=== PATIENT | male | born 1950 | race Caucasian/White ===

== ENCOUNTER 2016-04-15 09:49 | Observation (INO) ==
[2016-04-15 10:55] LABS: Basophils % 0.2 %; Eosinophils # 0.1 K/mcL (0.0-0.6); Eosinophils % 0.9 %; Hemoglobin 16.4 g/dL (12.9-16.9); Immature Granulocytes % 0.1 % (0-4); Lymphocytes # 4.5 K/mcL (0.6-4.6); Lymphocytes % 55.2 %; Mean Corpuscular HGB Conc 34.2 g/dL (31.6-35.5); Mean Corpuscular Hemoglobin 31.3 pg (28.0-33.3); Mean Corpuscular Volume 91.6 fL (83.0-100.0); Mean Platelet Volume 10.2 fL (9.4-12.4); Monocytes # 0.6 K/mcL (0.0-1.3); Monocytes % 7.2 %; Neutrophils # 2.9 K/mcL (1.6-8.9); Platelet Count 199 K/mcL (140-400); Red Blood Count 5.24 M/mcL (4.19-5.50); Red Cell Distribution Width 12.1 % (11.5-14.5); Segmented Neutrophils % 36.4 %
--- NOTE | 2016-04-15 10:59 | Emergency Department Note ---
Disposition Clinical Impression: Transient cerebral ischemia Qualifiers: Transient cerebral ischemia type: unspecified Qualified Code(s): G45.9 - Transient cerebral ischemic attack, unspecified Disposition: Admitted As Inpatient Condition: Fair Time of Disposition: 11:46 Dizziness HPI - General Chief Complaint: ED Dizziness Stated Complaint: Dizzy Time Seen by Provider: 04/15/16 10:02 Source: patient, family Limitations: no limitations Nursing Notes Reviewed: Yes Vital Signs Reviewed: Yes - History of Present Illness HPI Narrative: Patient is a 65-year-old male who presents to [facility] ED with a chief complaint of dizziness. States he has had 3 dizzy spells. First one was yesterday evening around 7 PM. Each spell lasts for approximately 5 minutes. First spell involved him getting double vision as well as feeling a funny feeling in his face that he describes as some numbness. Second spell involved him feeling very lightheaded and almost passing out. The third spell also had some double vision and numbness and his states he was unresponsive to her for a few minutes. Denies any prior history of episodes like this. Patient's states she was concerned for stroke so she brought him in. Patient denies any weakness to any of his extremities. Denies any nausea, vomiting, fever or chills. Past medical history significant for atrial fibrillation on several toe, prior MA, hyperlipidemia, type 2 diabetes, hypertension, bladder cancer (considered cured). Pt Subjective Complaint: lightheadedness, near syncope Onset (ago): hour(s) Timing: sudden onset, intermittent Description: lightheadedness, near-syncope History of similar episodes: No History of trauma: No Severity: moderate Improves with: nothing Worsens with: nothing Associated symptoms: Reports: confusion, vision changes. Denies: chest pain, fever, chills, shortness of breath, weakness, nausea, vomiting - Related Data Home Medications Medication Instructions Recorded Confirmed Lisinopril [Zestril] 10 mg PO DAILY 11/17/14 11/18/14 Rivaroxaban [Xarelto] 20 mg PO DAILY 09/22/15 09/22/15 Allergies Allergy/AdvReac Type Severity Reaction Status Date / Time No Known Allergies Allergy Verified 11/18/14 08:32 All systems ED: reviewed and negative except as stated. Past Medical History - Past Medical History Attestation: Yes The following information was validated with the patient. Source: patient Medical history: Reports: atrial fibrillation, cancer, diabetes, hypertension, myocardial infarction Psychiatric history: Reports: no psych history - Social History Smoking Status: Never smoker Smokeless Tobacco Status: No Alcohol use: Reports: none Drug use: Reports: none Physical Exam - General Limitations: no limitations General appearance: alert, in no apparent distress - Head Head exam: atraumatic, normocephalic, normal inspection - Eye Eye exam: Present: normal appearance, PERRL, EOMI - ENT ENT exam: normal exam, normal oropharynx, mucous membranes moist - Neck Neck exam: Present: normal inspection, full ROM, trachea midline - Chest Chest inspection: Present: normal inspection, symmetric chest wall rise - Respiratory Respiratory exam: Present: normal lung sounds bilaterally - Cardiovascular Cardiovascular exam: Present: regular rate, normal rhythm, normal heart sounds - Abdominal Exam Abdominal exam: Present: soft, Non-Tender. Absent: tenderness, distention, guarding, rebound, rigidity - Extremities Exam Extremities exam: Present: normal inspection, full ROM. Absent: tenderness, pedal edema - Back Exam Back exam: Present: normal inspection, full ROM. Absent: tenderness - Neurological Exam Neurological exam: Present: alert, oriented X3, CN II-XII intact. Absent: motor sensory deficit - Psychiatric Psychiatric exam: Present: normal affect, normal mood - Skin Skin exam: Present: warm, dry, intact, normal color Course Course Narrative: Patient seen and examined. Dizzy spells that last just a few minutes before going away on their own. Concern for cardiac versus intracranial pathology. We will do a cardiopulmonary workup along with CT head. - Reevaluation(s) Reevaluation #1: Labs unremarkable. CT of the head shows an age indeterminate right frontal lobe infarct. Suspect patient has had other TIAs as well. Will admit for TIA/stroke workup. I spoke with hospitalist Dr. Katz who has accepted patient for admission. Time: 11:46 Vital Signs Temperature 98.2 F 04/15/16 09:57 Pulse Rate 64 04/15/16 09:57 Respiratory Rate 16 04/15/16 09:57 Blood Pressure 169/94 04/15/16 09:57 O2 Sat by Pulse Oximetry 97 04/15/16 09:57 Temperature 98.2 F 04/15/16 09:57 Pulse Rate 58 04/15/16 11:02 Respiratory Rate 11 04/15/16 11:02 Blood Pressure 150/82 04/15/16 11:02 O2 Sat by Pulse Oximetry 96 04/15/16 11:02 Oxygen Delivery Oxygen Delivery Room Air Dizziness - Medical Records Medical records reviewed: Yes I reviewed the patient's medical records. - Lab Data Lab results reviewed: Yes I reviewed the patient's lab results. Result diagrams: 04/15/16 10:45 04/15/16 10:45 Lab Results 04/15/16 04/15/16 04/15/16 Range/Units 10:45 10:45 10:45 WBC 8.1 (4.3-11.1) K/mcL RBC 5.24 (4.19-5.50) M/mcL Hgb 16.4 (12.9-16.9) g/dL Hct 48.0 (37.5-50.1) % MCV 91.6 (83.0-100.0) fL MCH 31.3 (28.0-33.3) pg MCHC 34.2 (31.6-35.5) g/dL RDW 12.1 (11.5-14.5) % Plt Count 199 (140-400) K/mcL MPV 10.2 (9.4-12.4) fL Immature Gran % 0.1 (0-4) % Seg Neutrophils % 36.4 % Lymphocytes % 55.2 % Monocytes % 7.2 % Eosinophils % 0.9 % Basophils % 0.2 % Neutrophils # 2.9 (1.6-8.9) K/mcL Lymphocytes # 4.5 (0.6-4.6) K/mcL Monocytes # 0.6 (0.0-1.3) K/mcL Eosinophils # 0.1 (0.0-0.6) K/mcL Basophils # 0.0 (0.0-0.2) K/mcL Sodium 138 (136-145) mEq/L Potassium 4.7 H (3.5-4.5) mEq/L Chloride 105 (98-109) mEq/L Carbon Dioxide 26 (19-29) mEq/L BUN 15 (8-26) mg/dL Creatinine 0.91 (0.72-1.25) mg/dL Est GFR ( Amer) > 60 (> 60) Est GFR (Non-Af Amer) > 60 (> 60) BUN/Creatinine Ratio 16 (6-26) Glucose 107 H (70-99) mg/dL Calculated Osmolality 287 (280-300) Calcium 9.9 (8.6-10.8) mg/dL Troponin I 0.00 (0-0.03) ng/mL - Radiology Data Radiology results reviewed: Yes I reviewed the patient's radiology results. - EKG Data EKG attestation: Yes I reviewed and interpreted this EKG. EKG results narrative: EKG done at 1006 shows sinus bradycardia with a rate of [address] elevation or depression. There is a Q wave in lead 3. Normal axis. Attestation Statement - Attestation Attestation: Patient was seen with resident physician. I reviewed the history, physical, assessment and plan, and agree with the findings. I also personally evaluated this patient and had [id number] time with this patient. 65-year-old male who presents to the emergency department with multiple episodes of dizziness. First one was 7 PM last night states it lasted approximately 5 minutes and felt like he was going to pass out and or fall over. Had several more episodes today. The third one and one prompted his visit to the ED, said he was dizzy and he had some numbness under his left eye and his says he was acting confused for the 5 minute stretch of time. Symptoms resolved spontaneously he has not had any chest pain or palpitations. On examination neurologically the patient is intact heart and lungs are normal abdomen is soft and nontender extremities show no acute abnormalities. Patient has a history of A. fib which she says is controlled and he is on blood thinners for this. We will do workup both neurologically and cardiac and likely admitted to the hospital for near syncope and possible TIAs. Patient was clinically stable in the emergency department agree with resident physician assessment and plan.
[2016-04-15 11:07] LABS: BUN/Creatinine Ratio 16 (6-26); Blood Urea Nitrogen 15 mg/dL (8-26); Calcium 9.9 mg/dL (8.6-10.8); Carbon Dioxide 26 mEq/L (19-29); Chloride 105 mEq/L (98-109); Glucose 107 mg/dL (70-99); Osmolality,Calculated 287 (280-300); Potassium 4.7 mEq/L (3.5-4.5); Sodium 138 mEq/L (136-145); eGFR For African Americans > 60 (> 60); eGFR For Non-African Americans > 60 (> 60)
[2016-04-15] MEDS ORDERED: Naloxone 0.4 MG/ML INJ IVP PRN (13:37)
[2016-04-15] MEDS ORDERED: Ondansetron 4 MG/2 ML VIAL IVP PRN (13:37)
--- NOTE | 2016-04-15 13:41 | Internal Med History&Physical ---
Date of Encounter: 04/15/16 Time of Encounter: 13:00 Assessment and Plan (1) Transient cerebral ischemia Current visit: Yes Status: Acute Left-sided facial numbness and tingling, resolved within [address] head done in the emergency room shows low attenuation in the anterior right frontal lobe, suggestive of age-indeterminate infarct. We will get MRI brain to further assess this. Carotid Doppler to rule out stenosis. Patient has no history of previous stroke. Telemetry monitoring and trend troponins. Continue Xarelto. Check lipid profile and hemoglobin A1c. Qualifiers: Transient cerebral ischemia type: unspecified Qualified Code(s): G45.9 - Transient cerebral ischemic attack, unspecified (2) Near syncope Current visit: Yes Status: Acute Check orthostatic vitals. Uncertain etiology. IV hydration. Noted to be only on 1 antihypertensive with no episodes of hypotension at this time. Supportive care. (3) Essential hypertension Current visit: Yes Status: Chronic Resume lisinopril. (4) Diabetes mellitus Current visit: Yes Status: Chronic Diet-controlled diabetes as he had significant weight loss and that controlled his blood sugars very well. Patient was noted to be not on any medications at home. Check hemoglobin A1c. Accu-Chek blood glucose monitoring. Consistent carbohydrate diet. Qualifiers: Diabetes mellitus type: type 2 Diabetes mellitus complication status: without complication Diabetes mellitus intermediate designer insulin use: without intermediate designer use Qualified Code(s): E11.9 - Type 2 diabetes mellitus without complications (5) Atrial fibrillation Current visit: Yes Status: Chronic Continue long-term anticoagulation with Xarelto; Qualifiers: Atrial fibrillation type: chronic Qualified Code(s): I48.2 - Chronic atrial fibrillation (6) Bladder cancer Current visit: No Status: Resolved Qualifiers: Bladder location: unspecified site Qualified Code(s): C67.9 - Malignant neoplasm of bladder, unspecified Internal Medicine - H&P: HPI Chief complaint: Dizziness, left facial numbness Admitted From: Emergency Dept Plans for Post Hospital Care: Home History of present illness: Mr. Galdamez is a 65 year old male with history of hypertension, diabetes and atrial fibrillation, presenting with complaints of dizziness and left facial numbness. Patient reports being in his usual state of health until yesterday when he had an episode of dizziness and near syncope last night as he was resting in his recliner chair. He felt better slowly and was able to go to sleep and he had 2 further episodes this morning, both of them while he was standing and he almost fell due to dizziness and the third episode was associated with left-sided facial numbness and tingling, slight facial droop to the left and confusion. Each of his episodes lasted about 3-5 minutes. No previous similar episodes. No chest pain, palpitations, shortness of breath, focal weakness in extremities, slurred speech. Patient has a history of atrial fibrillation and is noted to be on Xarelto for the same. Past Med Surg Social Fam HX - Past Medical History Medical history: atrial fibrillation, cancer (History of bladder cancer status post resection), coronary artery disease, diabetes, hyperlipidemia, hypertension , myocardial infarction Psychiatric history: no psych history - Past Surgical History Surgical History: other (Transurethral resection of bladder tumor) - Social History Smoking Status: Former smoker Smokeless Tobacco Status: No Alcohol use: none Drug use: none Occupational status: retired Current living situation: Home, With Family Activity Level: Independent ambulation Recent Out of Country Travel Within the Last 8 Weeks: No Exposure or Possible Exposure to Illness During Travel: No - Family History Mother Hx Family Neurologic Disorders: Yes (CVA) Father Hx Family Cancer: Yes (Stomach cancer) Internal Medicine - H&P: Meds Lisinopril [Zestril] 20 mg PO DAILY 11/17/14 [History] Rivaroxaban [Xarelto] 20 mg PO DAILY 09/22/15 [History] Allergies No Known Allergies Allergy (Verified 11/18/14 08:32) All Systems PM: A 10-system review of systems was performed and is negative for pertinent findings except as documented above in the HPI. - Constitutional Constitutional: no chills, no fever(s), no night sweats - EENT Eyes: diplopia, no change in vision, no discharge, no pain, no photophobia Ears: no ear discharge, no ear pain, no tinnitus Nose, mouth and throat: no dysphagia, no nasal discharge, no neck pain, no sore throat - Cardiovascular Cardiovascular ROS IM: lightheadedness, no chest pain, no diaphoresis, no dyspnea, no palpitations, no syncope - Respiratory Respiratory: no cough, no dyspnea, no wheezing, no excessive phlegm production - Gastrointestinal Gastrointestinal: no abdominal pain, no diarrhea, no hematemesis, no hematochezia, no melena, no nausea, no vomiting - Musculoskeletal Musculoskeletal ROS IM: no numbness, no tingling - Integumentary Integumentary IM: no rash, no unusual bruising - Neurological Neurological ROS: behavioral changes, disequilibrium, numbness, paresthesias, vertigo - Hematologic/Lymphatic Hematologic/Lymphatic: no easy bruising - Constitutional Vitals: Temp Pulse Resp BP Pulse Ox 97.7 F 54 17 159/107 97 04/15/16 12:08 04/15/16 12:08 04/15/16 12:08 04/15/16 12:08 04/15/16 12:08 General appearance: Present: A&O X 3, answers questions appropriately - Head Head exam: Present: atraumatic, normocephalic - Neck Neck exam general surgery: Present: supple, trachea midline. Absent: lymphadenopathy - Respiratory Respiratory exam: Present: CTAB. Absent: accessory muscle use, rales, rhonchi, wheezes - Cardiovascular Cardiovascular exam: Present: RRR, +S1, +S2. Absent: diastolic murmur, gallop, rubs, systolic murmur - GI/Abdominal GI/Abdominal exam: Present: normal bowel sounds, soft, no peritoneal signs. Absent: distended, tenderness - Extremities Exam Extremities exam: Present: full ROM, warm, radial pulses palpable and symetrical. Absent: calf tenderness, cyanotic, pedal edema - Neurological Exam Neurological exam: Present: CN II-XII intact, oriented X3, no focal deficits, strengths equal and symetr throughout. Absent: pronater drift, facial droop, speech deficit - Skin Skin exam: Present: dry, intact Internal Med - H&P Results - Labs CBC & Chem 7: 04/15/16 10:45 04/15/16 10:45 - EKG Data -: EKG Interpreted by Myself EKG shows normal: sinus rhythm Rate: bradycardia (58 bpm)
[2016-04-15] MEDS: *HR* Rivaroxaban 10 MG TABLET PO SCH (14:36)
[2016-04-15] MEDS: Acetaminophen 325 MG TABLET PO PRN (19:59)
[2016-04-16 05:30] LABS: Basophils % 0.2 %; Eosinophils # 0.1 K/mcL (0.0-0.6); Eosinophils % 1.1 %; Hematocrit 46.7 % (37.5-50.1); Hemoglobin 15.9 g/dL (12.9-16.9); Immature Granulocytes % 0.1 % (0-4); Lymphocytes # 4.8 K/mcL (0.6-4.6); Lymphocytes % 50.4 %; Mean Corpuscular Hemoglobin 31.3 pg (28.0-33.3); Mean Corpuscular Volume 91.9 fL (83.0-100.0); Mean Platelet Volume 10.3 fL (9.4-12.4); Monocytes # 0.8 K/mcL (0.0-1.3); Monocytes % 8.1 %; Neutrophils # 3.9 K/mcL (1.6-8.9); Platelet Count 190 K/mcL (140-400); Red Blood Count 5.08 M/mcL (4.19-5.50); Red Cell Distribution Width 12.3 % (11.5-14.5); Segmented Neutrophils % 40.1 %
[2016-04-16 05:34] LABS: Hemoglobin A1C 5.3 %
[2016-04-16 05:42] LABS: BUN/Creatinine Ratio 16 (6-26); Blood Urea Nitrogen 15 mg/dL (8-26); Calcium 9.5 mg/dL (8.6-10.8); Carbon Dioxide 23 mEq/L (19-29); Chloride 104 mEq/L (98-109); Chol/HDL Ratio 7.4 (0-4.9); Cholesterol 199 mg/dL (< 200); Glucose 107 mg/dL (70-99); HDL Cholesterol 27 mg/dL (40-59); LDL Cholesterol,Calculated 121 mg/dL (0-99); Osmolality,Calculated 287 (280-300); Potassium 4.2 mEq/L (3.5-4.5); Sodium 138 mEq/L (136-145); Triglycerides 254 mg/dL (< 150); eGFR For African Americans > 60 (> 60); eGFR For Non-African Americans > 60 (> 60)
[2016-04-16] MEDS: Acetaminophen 325 MG TABLET PO PRN (06:46)
[2016-04-16] MEDS: *HR* Rivaroxaban 10 MG TABLET PO SCH (08:05)
--- NOTE | 2016-04-16 11:14 | Carotid Imaging Report ---
Carotid Duplex Patient Name:Damir Galdamez Order Number:[id number] Procedure Date:04/16/2016 Date:1950Age:65 yrs Gender:Male Rt.BP:139 / 83 mmHgHeart Rate: Location:[facility] Room #: 2NE28 Histology Manager:Nora Al Referring MD:Nancy Alexandra MD writer editor:[facility] Candi MD:Humza Fuller MD Primary Indications:Syncope and collapse Risk Factors Yes/No Hypertension Yes Diabetes Yes Hypercholesterolemia Yes Smoker Previous Yes Hx of CAD/PTCA Yes Impressions: Findings: Bilateral carotid system has nonstenotic plaque. Recommendations: Test completed on 04/16/2016 at 9:47:00 am. Findings Carotid Duplex: Right: The right proximal common carotid artery has a PSV of 93 cm/s and a EDV of 22 cm/s. The right mid common carotid artery has a PSV of 79 cm/s and a EDV of 17 cm/s. The right distal common carotid artery has a PSV of 74 cm/s and a EDV of 17 cm/s. There is nonstenotic plaque in the right bifurcation with a PSV of 48 cm/s and a EDV of 16 cm/s. There is irregular homogeneous plaque. The right proximal internal carotid artery has a PSV of 66 cm/s and a EDV of 25 cm/s. The right mid internal carotid artery has a PSV of 86 cm/s and a EDV of 30 cm/s. The right distal internal carotid artery has a PSV of 56 cm/s and a EDV of 21 cm/s. The right eca has a PSV of 102 cm/s and a EDV of 14 cm/s. The right vertebral artery has a PSV of 38 cm/s and a EDV of 13 cm/s. There is antegrade spectral Doppler flow patterns. Left: The left proximal common carotid artery has a PSV of 94 cm/s and a EDV of 19 cm/s. The left mid common carotid artery has a PSV of 85 cm/s and a EDV of 18 cm/s. The left distal common carotid artery has a PSV of 83 cm/s and a EDV of 20 cm/s. The left bifurcation has a PSV of 75 cm/s and a EDV of 19 cm/s. There is nonstenotic plaque in the left proximal internal carotid artery with a PSV of 86 cm/s and a EDV of 25 cm/s. There is smooth homogeneous plaque. The left mid internal carotid artery has a PSV of 61 cm/s and a EDV of 25 cm/s. The left distal internal carotid artery has a PSV of 70 cm/s and a EDV of 26 cm/s. The left eca has a PSV of 131 cm/s and a EDV of 17 cm/s. The left vertebral artery has a PSV of 38 cm/s and a EDV of 10 cm/s. There is antegrade spectral Doppler flow patterns. Prior Study: No prior study available for comparison. Carotid Results Right PSV EDV Assessment Proximal CCA 93 22 Mid CCA 79 17 Distal CCA 74 17 Bifurcation 48 16 Non Stenotic Plaque Proximal ICA 66 25 Mid ICA 86 30 Distal ICA 56 21 ECA 102 14 Vertebral Artery 38 13 Antegrade Flow Left PSV EDV Assessment Proximal CCA 94 19 Mid CCA 85 18 Distal CCA 83 20 Bifurcation 75 19 Proximal ICA 86 25 Non Stenotic Plaque Mid ICA 61 25 Distal ICA 70 26 ECA 131 17 Vertebral Artery 38 10 Antegrade Flow Ratio's Right ICA/CCA Ratio: 1.09 ICA/CCA Values: 86/79 Left ICA/CCA Ratio: 0.82 ICA/CCA Values: 70/85 Updated by Humza Fuller MD on 04/16/2016 11:10:46 AM electronically signed on 04/16/2016 11:10:57 AM with status of Final
--- NOTE | 2016-04-16 13:17 | ENT - Consult Note ---
Date of Encounter: 04/16/16 Time of Encounter: 13:00 Assessment and Plan (1) Dizziness Current Visit: Yes Status: Acute Recommending follow-up in ENT office for audiometric assessment and ENG to rule out entry any intracranial abnormality please note MRI and CT were already done and were unremarkable neurology consultation should occur to rule out possible TIA as the presumed cause of his double vision loss of mental clarity and dizziness and correlate this with the possible increased risk of TIA stroke associated with atrial fibrillation this patient information will be given to the ENT office and audio and VNG will be scheduled for thoroughness History of Present Illness History of present illness: male white 65 with sudden onset of dizziness Sunday night had 3 episodes lasting several minutes episodes are a spinning sensation from side to side with some occasional double vision which can be either horizontal or vertical with cloudy mentation with headaches these only lasts several minutes and then the symptoms are resolved this patient has a history of atrial fibrillation and is on Zarelto he denies cardiac irregularity but he is an increased risk of stroke and should be evaluated by a neurologist for possible stroke prevention also patient denies any hearing loss or ringing in the ear other than what he usually has since being in the hospital he has had 5 more episodes each lasting several minutes but with no substantial symptoms in between Past Med Surg Social Fam HX - Past Medical History Medical history: atrial fibrillation, cancer, coronary artery disease, diabetes , hyperlipidemia, hypertension, myocardial infarction Psychiatric history: no psych history - Past Surgical History Surgical History: other - Social History Smoking Status: Former smoker Smokeless Tobacco Status: No Alcohol use: none Drug use: none - Family History Mother Hx Family Neurologic Disorders: Yes (CVA) Father Hx Family Cancer: Yes (Stomach cancer) Medications and Allergies Lisinopril [Zestril] 20 mg PO DAILY 11/17/14 [History] Rivaroxaban [Xarelto] 20 mg PO DAILY 09/22/15 [History] Allergies No Known Allergies Allergy (Verified 11/18/14 08:32) ENT Exam Initial Vital Signs Temp Pulse Resp BP Pulse Ox 98.2 F 64 16 169/94 97 04/15/16 09:57 04/15/16 09:57 04/15/16 09:57 04/15/16 09:57 04/15/16 09:57 - Additional Findings ENT evaluation reveals no evidence of nystagmus and he denies anybody having of observed nystagmus while he is dizzy he also denies any cardiac irregularity is advised him to have somebody check for nystagmus when he gets dizzy and to have someone check for pulse irregularity Hallpike maneuvers were negative for benign positional vertigo the carotids were 2+ without bruits he has some cerumen in the left ear but the TMs are unremarkable Exam Initial Vital Signs Temp Pulse Resp BP Pulse Ox 98.2 F 64 16 169/94 97 04/15/16 09:57 04/15/16 09:57 04/15/16 09:57 04/15/16 09:57 04/15/16 09:57 Results - Labs 04/16/16 04:57 04/16/16 04:57 Abnormal lab results Lymphocytes # 4.8 K/mcL (0.6-4.6) H 04/16/16 04:57 Glucose 107 mg/dL (70-99) H 04/16/16 04:57 POC Glucose 108 (58-89) H 04/15/16 20:53 Triglycerides 254 mg/dL (< 150) H 04/16/16 04:57 LDL Cholesterol, Calc 121 mg/dL (0-99) H 04/16/16 04:57 VLDL Cholesterol, Calc 51 mg/dL (< 31) H 04/16/16 04:57 HDL Cholesterol 27 mg/dL (40-59) L 04/16/16 04:57 Cholesterol/HDL Ratio 7.4 (0-4.9) H 04/16/16 04:57 Diabetes panel 04/16/16 04/16/16 Range/Units 04:57 04:57 Sodium 138 (136-145) mEq/L Potassium 4.2 (3.5-4.5) mEq/L Chloride 104 (98-109) mEq/L Carbon Dioxide 23 (19-29) mEq/L BUN 15 (8-26) mg/dL Creatinine 0.91 (0.72-1.25) mg/dL Glucose 107 H (70-99) mg/dL Hemoglobin A1c 5.3 ( - 5.6) % Calcium 9.5 (8.6-10.8) mg/dL Triglycerides 254 H (< 150) mg/dL HDL Cholesterol 27 L (40-59) mg/dL Calcium panel 04/16/16 Range/Units 04:57 Calcium 9.5 (8.6-10.8) mg/dL Pituitary panel 04/16/16 Range/Units 04:57 Sodium 138 (136-145) mEq/L Potassium 4.2 (3.5-4.5) mEq/L Chloride 104 (98-109) mEq/L Carbon Dioxide 23 (19-29) mEq/L BUN 15 (8-26) mg/dL Creatinine 0.91 (0.72-1.25) mg/dL Glucose 107 H (70-99) mg/dL Calcium 9.5 (8.6-10.8) mg/dL Adrenal panel 04/16/16 Range/Units 04:57 Sodium 138 (136-145) mEq/L Potassium 4.2 (3.5-4.5) mEq/L Chloride 104 (98-109) mEq/L Carbon Dioxide 23 (19-29) mEq/L BUN 15 (8-26) mg/dL Creatinine 0.91 (0.72-1.25) mg/dL Glucose 107 H (70-99) mg/dL Calcium 9.5 (8.6-10.8) mg/dL All other labs normal. Consult Discharge Plan - Plan Instructions: Ischemic Stroke (GEN), Dizziness, Hospital Television Rental Clerk (GEN), Vertigo , Hospital Television Rental Clerk (GEN) Referrals: NO,PCP [Non-Partnered Physician] -
--- NOTE | 2016-04-16 14:14 | ECHO - Doppler Report ---
Echocardiogram Name: Damir Galdamez Date of Study: 04/16/2016 Date: 1950 Ht: 69.0 in Medical Record#: [id number] Age: 65 Wt: 220.0 lb Gender: Male BSA: 2.15 Order #: [id number] Location: [facility] Room #: 2NE28 Reading Physician: Dolly Reynoso DO Solution Manager: Nora Al Ordering Physician: Nancy Alexandra MD Primary Physician: [facility] Indications: Syncope Impressions: LVEF 60%. Normal left ventricular size and systolic function. There is evidence of mild diastolic dysfunction of the left ventricle. Normal right ventricular size and function. No significant valvular dysfunction. No pulmonary hypertension. Left Ventricular Wall Motion: Rest Echo Findings All wall segments showed normal motion. Findings: Study Quality * Technically adequate exam. ECG Findings * Sinus bradycardia. Left Ventricle * LVEF 60%. * Normal LV chamber size, wall thickness and function. * Mild left ventricular diastolic dysfunction. Left Atrium * Normal left atrial size. Aortic Valve * No aortic regurgitation. * Aortic valve not well visualized. * No aortic stenosis. Mitral Valve * No mitral regurgitation. * Normal mitral valve structure. * No mitral stenosis. Tricuspid Valve * Tricuspid valve not well visualized. * No tricuspid regurgitation. Pulmonic Valve * Pulmonic valve is not well visualized. * No pulmonic stenosis. * No pulmonic regurgitation. Pulmonary Artery * Pulmonary artery not well visualized. Right Atrium * Mildly dilated right atrium. Right Ventricle * Normal right ventricular structure and function. Interatrial Septum * No evidence of PFO by color Doppler. IVC * The IVC is not well evaluated. Pericardium * There is no pericardial effusion present. Aorta * Normally sized aortic root. History Hypertension Diabetes Hypercholesteremia History of CAD/PTCA Myocardial Infarction 11/30/2015 a Previous Echo was performed. Measurements: BP: 153/ 83 2D Normal Values IVSd: .71 cm 0.6 - 1.0 cm LVPWd: .76 cm 0.6 - 1.1 cm LVIDs: 3.10 cm 1.5 - 3.6 cm AO: 2.70 cm < 4.0 cm LA: 3.40 cm 2.0 - 4.0cm %FS: 47.70 cm >25 % LA volume: 46 Mitral Valve Peak E:.68 m/sec Peak A:.75 m/sec E/A Ratio:0.9 Peak E' Lat Dl:9.7 cm/s Peak E' Med Dl:6.71 cm/s E/E' Lat Ratio:7.1 E/E' Med Ratio:10.2 Updated by Dolly Reynoso on 04/16/2016 2:07:27 PM electronically signed on 04/16/2016 2:09:05 PM with status of Final Wall Motion [place]: 1=Normal, 2=Hypokinesis, 3=Akinesis, 4=Dyskinesis, 5=Aneurysmal, 6=Hyperkinetic, X=Not Visualized (Blank)=Missing
[2016-04-17] MEDS: *HR* Rivaroxaban 10 MG TABLET PO SCH (09:44)
--- NOTE | 2016-04-17 09:53 | Neurology - Consult Note ---
<Joseph Ferreira - Last Filed: 04/17/16 12:27> Date of Encounter: 04/17/16 Time of Encounter: 09:50 Assessment and Plan (1) Migraine with vertigo Status: Acute Patient presents with multiple episodes of near-syncope, dizziness and diplopia. Patient has undergone an extensive workup thus far including head CT , brain MRI, echocardiogram, carotid duplex and head/neck CTA. His initial head CT showed concern for possible infarction in the right frontal lobe. His brain MRI does demonstrate encephalomalacia in the right frontal lobe post traumatic versus postischemic. Patient denies any history of head trauma. CTA of the neck and head unremarkable. He has a reassuring echo with an LVEF of 60% . Patient is currently anticoagulated with xarelto. Recommend to continue his Xarelto, as his diabetes, hypertension and atrial fibrillation increases risk of ischemic events. Patient has a history of headaches for years he reports. Will treat for migraine associated vertigo. Recommend Solumedrol 60mg IV x1 as well as Elavil 25mg qPM to take for 1 month and follow up with neurology. Will discuss with Dr Santiago for further recommendations. History of Present Illness Chief complaint: Dizziness, Diplopia HPI: Mr. Galdamez is a 65 year old male history of hypertension, diabetes, atrial fibrillation on xarelto, who initially presented to the hospital due to dizziness, near syncope and diplopia. Patient reports that he was at home sitting in his chair whenever he noticed that the room started spinning around him and at the TV looked like it was splitting apart. He reports symptoms lasted for roughly 5-7 minutes and abated on their own. He reports that he had a second episode of this the next morning followed by a third that evening which prompted a visit to the hospital. Patient reports that during the third episode he developed numbness to the left side of his face as well as a reported facial droop. Patient reports that it starts at the room beginning to spin and then he starts to see double which is been followed later by a dull throbbing frontal headache. He reports having a history of headaches in the past that he describes as frontal and throbbing that would last up to one to 2 days. He reports that he would take Aleve before that would help. No formal diagnosis of migraines or family history. No history of trauma. No recent changes in his medications. Patient has had an extensive workup including echo carotid Doppler CT had brain MRI and head/neck CTA. He reports he continues to have the symptoms and that they are escalating in quantity. Patient also evaluated by ENT who recommended neurology evaluation. Past Med Surg Social Fam HX - Past Medical History Attestation: Yes The following information was validated with the patient. Source: patient Medical history: atrial fibrillation, cancer, coronary artery disease, diabetes , hyperlipidemia, hypertension, myocardial infarction Psychiatric history: no psych history - Past Surgical History Surgical History: non-contributory, other - Social History Smoking Status: Former smoker Smokeless Tobacco Status: No Alcohol use: none Drug use: none - Family History Mother Hx Family Neurologic Disorders: Yes (CVA) Father Hx Family Cancer: Yes (Stomach cancer) Medications and Allergies Lisinopril [Zestril] 20 mg PO DAILY 11/17/14 [History] Rivaroxaban [Xarelto] 20 mg PO DAILY 09/22/15 [History] Amitriptyline [Elavil] 25 mg PO HS #30 tablet 04/17/16 [Rx] Allergies No Known Allergies Allergy (Verified 11/18/14 08:32) All Systems: A 10-system review of systems was performed and is negative for pertinent findings except as documented above in the HPI. - Constitutional Constitutional ROS IM: headache(s), no fever(s), no weakness - Cardiovascular Cardiovascular ROS IM: no chest pain - Respiratory Respiratory IM: no cough, no dyspnea - Gastrointestinal Gastrointestinal: no abdominal pain - Neurological Neurological ROS: dizziness, headache(s), vertigo, no abnormal speech, no confusion, no disequilibrium, no focal weakness, no lack of coordination, no loss of vision, no numbness, no paresthesias, no sensory deficit, no syncope Physical Examination - Vital Signs Vital Signs: Initial Vital Signs Temp Pulse Resp BP Pulse Ox 98.2 F 64 16 169/94 97 04/15/16 09:57 04/15/16 09:57 04/15/16 09:57 04/15/16 09:57 04/15/16 09:57 - Constitutional General appearance: comfortable - Neurologic Sensorimotor examination: intact Detailed motor examination: grossly full strength in all extremities Detailed sensory examination: intact Mental Status Examination: awake, alert, oriented to person, oriented to place, oriented to time, follows commands appropriately, answers questions appropriately, no aphasia, no aproxia, makes eye contact Cranial nerve examination: PERRL, EOMI, sensory to face intact, mastication intact, no facial asymmetry is present, no dysarthria, hearing is intact symmetrically Cerebellar examination: no dysmetria, performs finger to nose and heel to trujillo symmetrically without ataxia Results - Laboratory Findings CBC and BMP: 04/16/16 04:57 04/16/16 04:57 Abnormal lab findings: Abnormal lab results Lymphocytes # 4.8 K/mcL (0.6-4.6) H 04/16/16 04:57 Glucose 107 mg/dL (70-99) H 04/16/16 04:57 POC Glucose 129 (58-89) H 04/16/16 21:02 Triglycerides 254 mg/dL (< 150) H 04/16/16 04:57 LDL Cholesterol, Calc 121 mg/dL (0-99) H 04/16/16 04:57 VLDL Cholesterol, Calc 51 mg/dL (< 31) H 04/16/16 04:57 HDL Cholesterol 27 mg/dL (40-59) L 04/16/16 04:57 Cholesterol/HDL Ratio 7.4 (0-4.9) H 04/16/16 04:57 Consult Discharge Plan - Plan Instructions: Amitriptyline (By mouth), Atrial Fibrillation (DC), Diabetes Mellitus Type 2 in Adults (DC), Ischemic Stroke (GEN), Chronic Hypertension (DC) , Dizziness, Tutoring Manager (GEN), Vertigo, Tutoring Manager (GEN) Referrals: [facility] [Outside] - 04/25/16 2:30 pm Prescriptions: Amitriptyline [Elavil] 25 mg PO HS #30 tablet <Aiyana Santiago I - Last Filed: 04/17/16 20:35> Date of Encounter: 04/17/16 Assessment and Plan (1) Migraine with vertigo Status: Acute PT seen and examined agree with Dr Ferreira assessment and documentation, he has history of undiagnosed non intractable migraines, and now with features of TRANSFORMED MIGRAINES ( MIGRAINE VARIANT associated with Vertigo) other possibility is of TIA , but less likely already on anticoagulation CTA is negative for any acute stenosis less likely seizures. may benefit from preventive meds like ELAVIL will see him back in office in few weeks as if no change may need to be on a different agent discussed with pt and explain all Aiyana Santiago MD History of Present Illness HPI: Mr. Galdamez is a 65 year old male All Systems: A 10-system review of systems was performed and is negative for pertinent findings except as documented above in the HPI. Physical Examination - Vital Signs Vital Signs: Initial Vital Signs Temp Pulse Resp BP Pulse Ox 98.2 F 64 16 169/94 97 04/15/16 09:57 04/15/16 09:57 04/15/16 09:57 04/15/16 09:57 04/15/16 09:57 Results - Laboratory Findings CBC and BMP: 04/16/16 04:57 04/16/16 04:57 Abnormal lab findings: Abnormal lab results Lymphocytes # 4.8 K/mcL (0.6-4.6) H 04/16/16 04:57 Glucose 107 mg/dL (70-99) H 04/16/16 04:57 POC Glucose 129 (58-89) H 04/16/16 21:02 Triglycerides 254 mg/dL (< 150) H 04/16/16 04:57 LDL Cholesterol, Calc 121 mg/dL (0-99) H 04/16/16 04:57 VLDL Cholesterol, Calc 51 mg/dL (< 31) H 04/16/16 04:57 HDL Cholesterol 27 mg/dL (40-59) L 04/16/16 04:57 Cholesterol/HDL Ratio 7.4 (0-4.9) H 04/16/16 04:57
--- NOTE | 2016-04-17 12:18 | Electrocardiograph Report ---
[facility] Test Date: 2016-04-15 Pat Name: Damir Galdamez Department: 104 Room: 2NE28 Gender: M Infirm[facility] Attendant: WILLIAM : 1950 Requested By: Larissa Mccarty Order Number: [id number] Reading MD: Saeed Lozano DO Measurements Intervals [place] Rate: 58 P: 39 HI: 168 QRS: 52 QRSD: 98 T: 48 QT: 394 QTc: 390 Interpretive Statements Sinus bradycardia Electronically Signed On 04-17-16 12:17:23 EST by Saeed Lozano DO
[2016-04-17] MEDS ORDERED: methylPREDNISolone 125 MG/2 ML VIAL IVP ONE (12:26)
--- NOTE | 2016-04-17 15:32 | Discharge Summary ---
Date of Encounter: 04/17/16 Time of Encounter: 09:15 - Discharge Diagnosis (1) Transient cerebral ischemia Priority: Primary Status: Acute Qualifiers: Transient cerebral ischemia type: unspecified Qualified Code(s): G45.9 - Transient cerebral ischemic attack, unspecified (2) Near syncope Priority: Primary Status: Acute (3) Essential hypertension Priority: Secondary Status: Chronic (4) Atrial fibrillation Priority: Secondary Status: Chronic Qualifiers: Atrial fibrillation type: chronic Qualified Code(s): I48.2 - Chronic atrial fibrillation (5) Vertigo Priority: Primary Status: Acute - Discharge Medications Prescriptions: Amitriptyline [Elavil] 25 mg PO HS #30 tablet Home Medications: Lisinopril [Zestril] 20 mg PO DAILY 11/17/14 [History] Rivaroxaban [Xarelto] 20 mg PO DAILY 09/22/15 [History] Amitriptyline [Elavil] 25 mg PO HS #30 tablet 04/17/16 [Rx] Allergies/Adverse Reactions: Allergies No Known Allergies Allergy (Verified 11/18/14 08:32) Procedures/tests Complete & Pending: Procedures Performed prior 72 hours Category Date Time Status CT angio head [CT] Routine Cat Scan 04/16/16 15:10 Completed CTA Neck [CT angio neck] [CT] Routine Cat Scan 04/16/16 15:10 Completed MR head/brain wo con [MR] Routine MRI 04/15/16 14:31 Completed EV carotid duplex imaging BI Routine Y 04/16/16 10:37 Completed EV echocardiogram Routine Y 04/16/16 10:20 Completed Date of admission: 04/15/16 11:43 [facility] care physician: [facility] Consults: 04/17/16 07:58 Consult to Neurology [CONS] Routine Consulting Provider: Neurology [facility] Reason for Consult: Possible TIas Call Completed: Yes Discharging clinician: Ronna Alexandra Anticipated date of discharge: 04/17/16 - Patient Status Disposition: Home, Self-Care Condition: Fair Functional capacity at discharge: independent ambulation Overall status at discharge: patient is progressing back to baseline - Discharge Instructions Instructions: Amitriptyline (By mouth), Atrial Fibrillation (DC), Diabetes Mellitus Type 2 in Adults (DC), Ischemic Stroke (GEN), Chronic Hypertension (DC) , Dizziness, Deputy Of Counter Intelligence (GEN), Vertigo, Deputy Of Counter Intelligence (GEN) Follow Up With: [facility] [Outside] - 04/25/16 2:30 pm - Diet and Activity Activity: resume usual activities as tolerated (avoid driving alone or working with heavy equipment/dangerous conditions until vertigo is resolved) Diet: low fat, low cholesterol, low salt diet Hospital course: Mr. Galdamez is a 65 year old male with history of atrial fibrillation was admitted with episodes of near syncope, confusion and left-sided facial numbness and weakness. Initial labs, EKG showed no acute abnormality. CT head showed no evidence of acute stroke. MRI brain was done which showed right frontal encephalomalacia suggestive of previous infarct/ischemia with no new evidence of stroke. Telemetry monitoring showed no acute abnormality, serial troponins remained negative for ACS. He was noted to be on Xarelto for chronic atrial fibrillation, which was continued. Lipid profile was abnormal with elevated triglycerides and cholesterol-this was discussed with the patient and he reports having had side effects/adverse reactions to statins and niacin in the past and was reluctant to be started on a new medication at this time, would like to discuss with his primary care provider regarding this. Due to continued symptoms including vertigo, he was started empirically on meclizine and was evaluated by ENT with recommendations to undergo outpatient audiometry and VNG studies. Neurology was also consulted and recommended CT angiography of head and neck, which were unremarkable. At this time, no further testing or intervention was recommended and patient is medically stable for discharge home with outpatient neurology follow-up. - Time Spent with Patient Total time spent providing and/or coordinating discharge services: Greater than 30 minutes (50 min) - Constitutional Vitals: Temp Pulse Resp BP Pulse Ox 98.0 F 67 15 124/81 93 L 04/17/16 11:00 04/17/16 11:00 04/17/16 11:00 04/17/16 11:04/17/16 11:00 General appearance: Present: A&O X 3, answers questions appropriately - Respiratory Respiratory exam: Present: CTAB. Absent: accessory muscle use, rales, rhonchi, wheezes - Cardiovascular Cardiovascular exam: Present: RRR, +S1, +S2. Absent: diastolic murmur, gallop, rubs, systolic murmur - Neurological Exam Neurological exam: Present: CN II-XII intact, oriented X3, no focal deficits. Absent: pronater drift, facial droop, speech deficit
[2016-04-17 16:07] VITALS: BP 120/82
--- NOTE | 2016-04-17 22:41 | Internal Med Progress Note ---
Date of Encounter: 04/16/16 Time of Encounter: 09:30 - Assessment and plan (1) Transient cerebral ischemia Status: Acute Assessment and plan: to r/o TIA/vertigo; CT head, MRI brain show frontal encephalomalacia with possible previous infarct but no new findings; carotid Doppler shows no significant stenosis; Echocardiogram shows no acute abnormality/atrial thrombus ; HbA1C noted to be 5.3%; lipid profile shows elevated triglycerides- discussed findings with patient, who reports he has issues with cholesterol in the past and tried statin and Niacin but did not like them due to side effects; encouraged patient to d/w PCP regarding initiation of another class of meds like Gemfibrozil; dietary modification and exercise encouraged; Qualifiers: Transient cerebral ischemia type: unspecified Qualified Code(s): G45.9 - Transient cerebral ischemic attack, unspecified (2) Vertigo Status: Acute Assessment and plan: ENT consult for possible vestibular and peripheral causes of vertigo; recommend outpatient audiometric testing and ENG; agree with PRN Meclizine; also recommend Neurology evaluation to further assess central causes given his underlying a.fib; d/w Neurology, recommend CTA head and neck; (3) Near syncope Status: Acute (4) Essential hypertension Status: Chronic (5) Diabetes mellitus Status: Ruled-out Qualifiers: Diabetes mellitus type: type 2 Diabetes mellitus complication status: without complication 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 insulin use: without nursing home use Qualified Code(s): E11.9 - Type 2 diabetes mellitus without complications (6) Atrial fibrillation Status: Chronic Assessment and plan: continue Xarelto for anticoagulation; Qualifiers: Atrial fibrillation type: chronic Qualified Code(s): I48.2 - Chronic atrial fibrillation - Subjective Interval history: reports having 2 more episodes of dizziness and is concerned about them; describes vertigo -"room spinning" along with some numbness and blurred vision; no emesis, chest pain, syncope, palpitations; - Constitutional Vitals: Temp Pulse Resp BP Pulse Ox 98.1 F 81 16 120/82 95 04/17/16 15:00 04/17/16 15:00 04/17/16 15:00 04/17/16 15:00 04/17/16 15:00 General appearance: Present: A&O X 3, answers questions appropriately - Head Head exam: Present: atraumatic, normocephalic - Neck Neck exam general surgery: Present: supple, trachea midline. Absent: lymphadenopathy - Respiratory Respiratory exam: Present: CTAB. Absent: accessory muscle use, rales, rhonchi, wheezes - Cardiovascular Cardiovascular exam: Present: RRR, +S1, +S2. Absent: diastolic murmur, gallop, rubs, systolic murmur - GI/Abdominal GI/Abdominal exam: Present: normal bowel sounds, soft, no peritoneal signs. Absent: distended, tenderness - Extremities Exam Extremities exam: Present: warm, radial pulses palpable and symetrical. Absent : calf tenderness, cyanotic, pedal edema - Neurological Exam Neurological exam: Present: CN II-XII intact, oriented X3, no focal deficits. 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 [Outside] - 04/25/16 2:30 pm Prescriptions: Amitriptyline [Elavil] 25 mg PO HS #30 tablet
== END 2016-04-17 17:10 | disposition home or self-care (01) ==
LOC: EMEROO 09:49 → 2NENU 09:49 → SUATTDRO 11:43 → 2NENU 12:01
PROVIDERS: ADMIT Internal Medicine; ATTEND Internal Medicine